=== PATIENT | female | born 1980 | race Two or more races ===

== ENCOUNTER 2018-12-24 15:25 | Outpatient (CLI) | payer OTHER ==
[~2018-12-24 15:25] MED LIST: MAXITROL EYE DRO5 ML OP; MOTRIN800 MG PO; ORPH100T PO
== END 2018-12-24 15:38 | disposition home or self-care (01) ==
LOC: RAD 501 15:25
DX: J44.1 Chronic obstructive pulmonary disease with (acute) exacerbation (principal)

== ENCOUNTER → 2019-02-13 | Outpatient (CLI) | payer OTHER | END | disposition home or self-care (01) | LOC: MAMO-SONO 08:15 → SONOGRAMA 08:36 | DX: R10.2 Pelvic and perineal pain (principal) ==

== ENCOUNTER 2019-06-26 14:28 | Outpatient (CLI) | payer OTHER | END 2019-06-26 14:56 | disposition home or self-care (01) | LOC: MAMO-SONO 14:28 | DX: Z12.31 Encounter for screening mammogram for malignant neoplasm of breast (principal); Z87.898 Personal history of other specified conditions; N61.0 Mastitis without abscess ==

== ENCOUNTER 2019-07-20 09:57 | Outpatient (CLI) | payer OTHER | END 2019-07-20 10:07 | disposition home or self-care (01) | LOC: SONOGRAMA 09:57 | DX: D21.9 Benign neoplasm of connective and other soft tissue, unspecified (principal) ==

== ENCOUNTER 2021-02-08 08:32 | Outpatient (CLI) | payer OTHER | END 2021-02-08 08:54 | disposition home or self-care (01) | LOC: MAMO-SONO 08:32 | PROVIDERS: ATTEND Obstetrics & Gynecology | DX: N60.11 Diffuse cystic mastopathy of right breast (principal); N60.12 Diffuse cystic mastopathy of left breast ==

== ENCOUNTER 2022-12-27 10:01 | Emergency (ER) | payer OTHER ==
[~2022-12-27] VITALS: Ht 165.1 cm; Wt 68.0 kg
[2022-12-27] MEDS ORDERED: ZOLOFT100 MG (10:14)
[2022-12-27] MEDS ORDERED: ZITHROMAX500 MG PO (11:28)
== END 2022-12-27 11:50 | disposition home or self-care (01) ==
LOC: ER 10:01
DX: J02.9 Acute pharyngitis, unspecified (principal); Z20.822 Contact with and (suspected) exposure to COVID-19

== ENCOUNTER 2023-12-30 22:29 | Emergency (ER) | payer OTHER ==
[~2023-12-30] VITALS: Ht 162.6 cm; Wt 66.2 kg
[~2023-12-30 22:29] MED LIST changes: +ZITHROMAX500 MG PO; +ZOLOFT100 MG
== END 2023-12-31 02:05 | disposition home or self-care (01) ==
LOC: ER 22:30
DX: G44.209 Tension-type headache, unspecified, not intractable (principal)

== ENCOUNTER 2024-05-04 10:45 | Outpatient (CLI) | payer OTHER | END 2024-05-04 11:06 | disposition home or self-care (01) | LOC: MAMO-SONO 10:45 | DX: N63.0 Unspecified lump in unspecified breast (principal); Z12.39 Encounter for other screening for malignant neoplasm of breast ==

== ENCOUNTER 2025-01-08 09:33 | Outpatient (CLI) | payer OTHER | END 2025-01-08 09:44 | disposition home or self-care (01) | LOC: RAD 09:33 | DX: R53.83 Other fatigue (principal); R05.9 Cough, unspecified; M54.2 Cervicalgia ==

== ENCOUNTER 2025-01-11 10:37 | Outpatient (CLI) | payer OTHER | END 2025-01-11 10:47 | disposition home or self-care (01) | LOC: SONOGRAMA 10:37 | DX: R94.6 Abnormal results of thyroid function studies (principal); R13.10 Dysphagia, unspecified ==

== ENCOUNTER 2025-02-25 07:21 | Outpatient (CLI) | payer OTHER | END 2025-02-25 07:30 | disposition home or self-care (01) | LOC: TOM 07:21 | PROVIDERS: ATTEND Otolaryngology Otology & Neurotology | DX: R13.10 Dysphagia, unspecified (principal) ==